=== PATIENT | male | born 1975 | race Asian ===

== ENCOUNTER → 2019-08-06 | Day surgery (SDC) | payer OTHER ==
[~2019-08-06] MED LIST: ACETAMINOPHEN 325 MG TABLET PO PRN; ALBUTEROL SULFATE 2.5 MG/3 ML NEBU. NEB PRN; ATROPINE 0.5 MG/5 ML DISP.SYRIN. IV PRN; FAMOTIDINE 20 MG/2 ML VIAL IVP ONE; GLUC100018 PO; HYDR-2145 PO; IV RINGERS SOLUTION,LACTATED 1,000 ML IV SCH; LISI10TA2 PO; MIDAZOLAM HCL PF 2 MG/2 ML VIAL. IV PRN; OMEG1CAP6 PO; OMEP20CA10 PO; ONDANSETRON PF 4 MG/2 ML VIAL. IV PRN; PHENOL ORAL SPRAY 177ML BOTTLE. MM PRN; PROPOFOL 20 ML IV ONE; PROPOFOL 40 ML IV ONE; SODIUM PHOSPHATES 19/7GM 133 ML ENEMA. PR ONE; diphenhydrAMINE 50 MG/ML VIAL IV PRN
[2019-08-06 12:56] VITALS: BP 113/67
--- NOTE | 2019-08-10 16:06 | PATHOLOGY ---
[facility] Accession Number: [id number] . 01 Material submitted: . PART A: stomach - ANTRUM GASTRITIS PART B: stomach - POLYP ANTRUM AND BIOPSY . 01 Clinical history: . EGD/colonoscopy . 02 Diagnosis: A. Gastric biopsy, antrum: - Chronic gastritis, mild. . B. Gastric biopsies, antral polyp: - Consistent with hyperplastic polyp, with mild chronic inflammation. . 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 02 Comment: Sections of the gastric antral biopsy show congestion and mild chronic inflammation. A properly controlled immunoperoxidase stain for Helicobacter is negative for Helicobacter organisms. . Sections of the gastric antral polyp biopsy reveal segments of gastric antral mucosa showing congestion, foveolar hyperplasia, and mild chronic inflammation. The findings are consistent with a hyperplastic polyp. There are no adenomatous changes or evidence of malignancy. . 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 02 Electronically signed: . Harry Harvey MD, Pathologist NPI- [id number] . 01 Gross description: . A. Received in formalin labeled "Panda, [place], antrum gastritis," is a single segment of phillips soft tissue measuring 0.4 cm in maximum dimension. The specimen is entirely submitted in cassette A1. . B. Received in formalin labeled "Panda, [place], antrum polyp BX," are 2 segments of phillips soft tissue measuring 1.1 x 0.3 x 0.2 cm in aggregate dimensions and ranging from 0.5 to 0.6 cm in maximum dimension. The specimen is submitted entirely in cassette B1. (TSD; 08/09/2019) TOB/TOB 08/10/2019 1016 Local . 02 Pathologist provided ICD-10: K29.50, K31.7 . 02 CPT . 285900, 800606, [id number] Specimen Comment: A courtesy copy of this report has been sent to [phone] Specimen Comment: Report sent to Performed at: 01 [facility] [address] [id number] MD Thien Thomas MD Phone: [phone] Performed at: 02 [facility] [address] [place], [place] [id number] MD Harry Harvey MD Phone: [phone]
== END ==
LOC: SURG 10:24 → EEVIPCON 11:30
PROVIDERS: ATTEND Internal Medicine Gastroenterology
DX: Z12.11 Encounter for screening for malignant neoplasm of colon (principal); K29.50 Unspecified chronic gastritis without bleeding; K31.7 Polyp of stomach and duodenum; K29.00 Acute gastritis without bleeding; K25.9 Gastric ulcer, unspecified as acute or chronic, without hemorrhage or perforation; K64.0 First degree hemorrhoids; K63.89 Other specified diseases of intestine; I10 Essential (primary) hypertension; Z98.890 Other specified postprocedural states
CPT/HCPCS: 43239; 45378; J2704; J3490; J7120; 88305; 88342